=== PATIENT | male | born 1980 | race Two or more races ===

== ENCOUNTER 2021-12-30 21:54 | Emergency (ER) | payer MEDICAID | END 2021-12-30 22:54 | disposition home or self-care (01) | LOC: JP.ED 21:54 | DX: S66.211A Strain of extensor muscle, fascia and tendon of right thumb at wrist and hand level, initial encounter (principal); W50.0XXA Accidental hit or strike by another person, initial encounter; Y93.72 Activity, wrestling | CPT/HCPCS: 73130-RT; 99283-25 ==

== ENCOUNTER 2022-07-14 14:44 | Emergency (ER) | payer MEDICAID | END 2022-07-14 16:22 | disposition home or self-care (01) | LOC: JP.ED 14:44 | DX: U07.1 COVID-19 (principal); J06.9 Acute upper respiratory infection, unspecified; Z87.891 Personal history of nicotine dependence | CPT/HCPCS: 99283 ==

== ENCOUNTER 2022-10-17 10:42 | Emergency (ER) | payer MEDICAID | END 2022-10-17 12:12 | disposition home or self-care (01) | LOC: JP.ED 10:42 | DX: H10.022 Other mucopurulent conjunctivitis, left eye (principal); J02.0 Streptococcal pharyngitis | CPT/HCPCS: 87880-QW; 99282; 99283 ==

== ENCOUNTER 2024-10-03 06:24 | Emergency (ER) | payer MEDICAID ==
[2024-10-03] MEDS: Proparacaine 0.5% Ophth Soln 15 ML Bottle EYERT ONE (06:50)
== END 2024-10-03 07:03 | disposition home or self-care (01) ==
LOC: JP.ED 06:24
DX: H10.9 Unspecified conjunctivitis (principal); F17.210 Nicotine dependence, cigarettes, uncomplicated
CPT/HCPCS: 99283; A9270